=== PATIENT | male | born 1975 | race Caucasian/White ===

== ENCOUNTER → 2019-10-18 10:37 | Outpatient (BNVA) | payer MEDICARE, MEDICAID, SELFPAY | PROVIDERS: Family Provider Registered Nurse; PCP Family Medicine; Visit Provider Nurse Practitioner | DX: F20.5 Residual schizophrenia (principal) | CPT/HCPCS: 99213 ==

== ENCOUNTER → 2020-01-11 08:11 | Outpatient (BNVA) | payer MEDICARE, MEDICAID, SELFPAY | PROVIDERS: Family Provider Registered Nurse; PCP Family Medicine; Visit Provider Nurse Practitioner | DX: F20.5 Residual schizophrenia (principal) | CPT/HCPCS: 99213 ==

== ENCOUNTER → 2020-04-15 09:10 | Outpatient (BNVA) | payer MEDICARE, MEDICAID, SELFPAY | PROVIDERS: Family Provider Registered Nurse; PCP Family Medicine; Visit Provider Nurse Practitioner | DX: F20.5 Residual schizophrenia (principal); Z79.899 Other long term (current) drug therapy | CPT/HCPCS: 99214 ==

== ENCOUNTER → 2020-09-03 09:25 | Outpatient (BNVA) | payer MEDICARE, MEDICAID, SELFPAY | PROVIDERS: Family Provider Registered Nurse; PCP Family Medicine; Visit Provider Nurse Practitioner | DX: F20.5 Residual schizophrenia (principal); Z79.899 Other long term (current) drug therapy | CPT/HCPCS: 80061; 83036; 99214 ==